=== PATIENT | male | born 1940 | race Two or more races ===

== ENCOUNTER 2020-03-19 19:43 | Inpatient (IN) | payer MEDICARE, BC ==
[~2020-03-19] VITALS: Ht 167.6 cm; Wt 76.2 kg
--- NOTE | 2020-03-19 20:30 | NUR ---
GPS MENTAL TELEPATHIST: ADMITTED 79 Y/O MALE. PT ADMITTED FROM [facility]. PT ADMITTED FROM [facility] TO GPS ON A 5150. PER HOLD PT IS HERE DUE TO INCREASINGLY CONFUSED, DISORIENTED, ANXIOUS, RESTLESS, WALKING IN THE MIDDLE OF THE NIGHT, INCREASE DELUSION THAT HIS IS AN IMPOSTER AND THAT HE IS TO HIS DAUGHTER, HE IS TALKING ABOUT HIRING A HITMAN TO GET RID OF HIS DAUGHTERS , AGGRESSIVE, PT TOOK 55 TABLETS OF 25MCG OF SYNTHROID AND TOLD HIS HE WOULD RITA HIMSELF. UPON FACE TO FACE ASSESSMENT PT IS ALERT ORIENTED X 1-2, UNCOOPERATIVE, ANXIOUS, FORGETFUL, CONFUSED, PARANOID, DISORGANIZED AT TIMES, AND EASILY AGITATED. PT YEVGENIY SI/ HI AT THIS TIME. PT STATED "I HAVE NO CLUE WHY IM HERE". PT UNABLE TO SIGN NECESSARY PAPER WORK DUE TO CONFUSION . ENVIRONMENTAL SAFETY CHECK DONE Q15. ENCOURAGE PT VERBALIZE FEELINGS AND CONCERNS TO STAFF. ORIENTED PT TO THE UNIT. NOTIFIED HOT CAR OPERATOR DR ROMERO FOR MED RECON. NOTIFIED PTS DAUGHTER OF ADMISSION (NILS). BELONGING AND CONTRABAND WERE DONE. NURSING ASSESSMENT WERE DONE. NURSING ASSESSMENT DONE. PT REFUSED SKIN ASSESSMENT AND PICTURES FOR DOCUMENTATION. PT STATED, "ITS NOT GOING TO HAPPEN." PT REFUSED PICTURE OF FACE. PT RIGHTS DISCUSSED BY LOCAL CITY DRIVER. PROVIDED PT WITH HANDBOOK AND MED GUIDE, VITALS TAKEN WNL. NO S/S OF RESP DISTRESS. BREATHING EVEN AND UNLABORED. NO S/S OF SOB. CONTINUE TO MONITOR.
[2020-03-19] MEDS ORDERED: MAGNESIUM HYDROXIDE 30 ML UDC PO PRN (21:00)
[2020-03-19] MEDS ORDERED: BLOOD SUGAR DIAGNOSTIC 1 EACH STRIP IN ONE (21:00)
[2020-03-19] MEDS ORDERED: MAG HYDROX/AL HYDROX/SIMETH 30 ML UDC PO PRN (21:00)
[2020-03-19] MEDS ORDERED: ACETAMINOPHEN 325 MG TABLET PO PRN (21:00)
[2020-03-19] MEDS ORDERED: DUTA0.5C PO (22:12)
[2020-03-19] MEDS ORDERED: CLON0.5T PO (22:12)
[2020-03-19] MEDS ORDERED: QUET25TA PO (22:12)
[2020-03-19] MEDS ORDERED: synthroid PO (22:12)
[2020-03-19] MEDS ORDERED: NORT25CA5 PO (22:12)
[2020-03-19] MEDS ORDERED: DONE5TAB7 PO (22:12)
[2020-03-19 23:22] VITALS: BP 155/89
[2020-03-20] MEDS: LEVOTHYROXINE SODIUM 25 MCG TABLET PO SCH (07:43)
[2020-03-20 08:00] VITALS: BP 114/72
[2020-03-20 08:27] LABS: ALBUMIN 3.7 g/dL (3.4-5.0); BILIRUBIN,TOTAL 0.6 mg/dL (0.2-1.0); CALCIUM, SERUM 9.4 mg/dL (8.5-10.1); CREATININE 0.9 mg/dL (0.6-1.3); TOTAL PROTEIN, SERUM 7.7 g/dL (6.4-8.2)
[2020-03-20] MEDS: DUTASTERIDE (0.5 MG) 0.5 MG CAPSULE PO SCH (08:58)
--- NOTE | 2020-03-20 09:00 | NUR ---
RN NOTE- PT WANDERING UNIT, CONFUSED, DISORGANIZED LOOKING FOR , THINKING OTHER PTS ARE HIS SPOUSE, CONSTANT REDIRECTION REQUIRED. MED COMPLIANT , PO INTAKE POOR
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
[2020-03-20 09:32] LABS: CHOLESTEROL 258 mg/dL (<200); HDL CHOLESTEROL 68 mg/dL (40-60); LDL 184 mg/dL (0-99); TRIGLYCERIDES 77 mg/dL (30-150)
--- NOTE | 2020-03-20 10:04 | NUR ---
INITIAL DISCHARGE PLAN: Per Madie [phone] she wishes for pt to return home [address], [place] [address] buy wants to see how pt responds to treatment before making a decision is pt will be needing placement. SW will help form a safe and proper discharge in collaboration with .
--- NOTE | 2020-03-20 10:05 | NUR ---
FAMILY CONTACT: SW received a call from pts daughter Bren [phone] requesting SW's email to send advance directive. SW provided daughter with email address and forwarded call to nurses station.
--- NOTE | 2020-03-20 15:25 | NUR ---
INDIVIDUAL INTERVENTION: Pt has Lewy Body Dementia and only alert and oriented to self. Pt is unable to engage in a meaningful conversation. Pt is a poor historian and believes he is a passenger in a ship and is looking for his . Pt is pacing the hallway and coming in and out of his room. Pt is anxious and restless.
[2020-03-20 16:00] VITALS: BP 128/79
--- NOTE | 2020-03-20 20:00 | NUR ---
peoplesoft fscm developer initial notes seen pt in his room awake, standing , wandering, so confused, disoriented. seen wearing his pants other way around. teach him how he do it and put pt gown as well. Noticed no skin breakdown . still refusing to take photo . Re- oriented where he at . denies any discomfort. no signs of any distress noted. Frequent re-orientation needed. will continue Q 15 minutes monitoring of safety.
[2020-03-20 20:24] VITALS: BP 97/53
[2020-03-20] MEDS: RIVASTIGMINE TARTRATE 1.5 MG CAPSULE PO SCH (21:23)
[2020-03-20] MEDS: risperiDONE 0.25 MG TABLET PO SCH (21:23)
[2020-03-20] MEDS: MIRTAZAPINE 15 MG TABLET PO SCH (21:24)
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
[2020-03-21 08:00] VITALS: BP 139/92
[2020-03-21] MEDS: risperiDONE 0.25 MG TABLET PO SCH ×2 (08:17→20:28)
[2020-03-21] MEDS: DUTASTERIDE (0.5 MG) 0.5 MG CAPSULE PO SCH (08:17)
[2020-03-21] MEDS: LEVOTHYROXINE SODIUM 25 MCG TABLET PO SCH (08:17)
[2020-03-21] MEDS: RIVASTIGMINE TARTRATE 1.5 MG CAPSULE PO SCH ×2 (08:17→21:05)
[2020-03-21 16:00] VITALS: BP 147/87
--- NOTE | 2020-03-21 16:10 | NUR ---
Family Contact: Pts daughter, Bren, called the SW from the pts wifes phone, Madie ([phone]), as she was present on the call as well. SW and the pts daughter went through the various discharge options for the pt. SW stated that the pt can return home if the family requests but stated it is recommended that the pt is placed somewhere as he has been aggressive. CORINNA stated that placement for psych patients in the [facility] can get difficult and therefore she recommended two placement agencies that can work with the hospital SWs in placing the pt in [place]. SW explained the finances and the different qualities in each type of facility such as penitentiary, assisted living and memory care. Pts daughter stated that they will discuss the options and call the SW back to start the discharge planning process.
[2020-03-21] MEDS: MIRTAZAPINE 15 MG TABLET PO SCH (21:05)
--- NOTE | 2020-03-22 06:20 | NUR ---
GPS-RN NOTE: BRUISES PATIENT NOTED TO HAVE OLD BRUISES ON RIGHT UPPER ARM AND NOTICED PATIENT WAS SCRATCHING AND NOTED WITH SMALL AMOUNT OF BLOOD COMING OUT. INITIAL TREATMENT RENDERED. DISCOURAGED PATIENT NOT TO SCRATCH THE AFFECTED AREA. PT. VERBALIZED UNDERSTANDING. NO S/SX OF INFECTION NOTED. NO ACTIVE BLEEDING NOTED. WOUND CONSULT ORDERED. WILL ENDORSE TO THE DAY SHIFT NURSE FOR CONTINUITY OF CARE.
[2020-03-22 08:00] VITALS: BP 120/64
[2020-03-22] MEDS: RIVASTIGMINE TARTRATE 1.5 MG CAPSULE PO SCH ×2 (08:20→21:52)
[2020-03-22] MEDS: LEVOTHYROXINE SODIUM 25 MCG TABLET PO SCH (08:20)
[2020-03-22] MEDS: risperiDONE 0.25 MG TABLET PO SCH ×2 (08:20→20:23)
[2020-03-22 16:00] VITALS: BP 106/50
--- NOTE | 2020-03-22 19:30 | NUR ---
GPS RN NOTE, RECEIVED PATIENT AWAKE AND IN BED, PATIENT HAS NO COMPLAINTS OF PAIN. PATIENT IS DISPLAYING NO S/S OF APPARENT DISTRESS AT THIS TIME. PATIENT BREATHING IS UNLABORED WITH EQUAL RISE AND FALL OF THE CHEST. PATIENT IS ALERT AND ORIENTED X 1-2 ON ROOM AIR WITH A SPO2 95%. PATIENT IS COMPLIANT WITH MEDICATION, CONFUSED, CALM, ANXIOUS AT TIMES, AND COOPERATIVE. PATIENT DENIES SUICIDE IDEATIONS AND HOMICIDAL IDEATIONS AT THIS TIME. PATIENT ASSISTED WITH TURNING AND REPOSITIONING Q2HR AND PRN FOR COMFORT AND CIRCULATION. PATIENT HAS NO NEEDS AT THIS TIME. PATIENT EDUCATED ON THE USE OF THE CALL GOMEZ. PATIENT BED SIDE RAILS UP X 2 FOR SAFETY, BED IS LOCKED, AND LOW. WILL CONTINUE TO MONITOR Q15MIN WITH THE HELP OF STAFF TO MAINTAIN SAFETY.
[2020-03-22 20:20] VITALS: BP 135/79
[2020-03-22] MEDS: MIRTAZAPINE 15 MG TABLET PO SCH (21:52)
[2020-03-23] MEDS: risperiDONE 0.25 MG TABLET PO SCH ×2 (07:32→20:59)
[2020-03-23] MEDS: LEVOTHYROXINE SODIUM 25 MCG TABLET PO SCH (07:32)
[2020-03-23] MEDS: RIVASTIGMINE TARTRATE 1.5 MG CAPSULE PO SCH ×2 (08:28→21:10)
--- NOTE | 2020-03-23 09:00 | NUR ---
RN NOTE- PT SLIGHTLY BETTER THIS MORNING THAN TWO DAYS PREVIOUSLY, CALMER LESS ANXIETY, STILL DISORGANIZED, CONFUSED, THINKS HES 'ON A SHIP' NEEDS ATTENDED, PO INTAKE GOOD MED COMPLIANT
--- NOTE | 2020-03-23 15:19 | NUR ---
INDIVIDUAL INTERVENTION: Pt has Lewy Body Dementia and only alert and oriented to self. Pt is unable to engage in a meaningful conversation. Pt was sitting in his room, talking to himself. When SW asked who he was talking to pt stated, "oh to the captain of this ship."
--- NOTE | 2020-03-23 15:49 | NUR ---
FAMILY CONTACT: CORINNA contacted pts Madie [phone] to discuss pts discharge plan. states that she is unable to afford placing pt at an assisted living and states that she really wishes for pt to return home. states that today pt sounded much better over the phone and believes the medication is working well. states that she would like to see how pt is doing over the weekend before making a final decision. states that she wishes for the MD to keep pt hospitalized as long as possible to ensure he continues responding well to the medication. is requesting a phone call from . SW stated she will notify MD and will follow up with her next week.
[2020-03-23 16:11] VITALS: BP 122/69
--- NOTE | 2020-03-23 19:30 | NUR ---
GPS RN NOTE, RECEIVED PATIENT AWAKE AND IN BED, PATIENT HAS NO COMPLAINTS OF PAIN. PATIENT IS DISPLAYING NO S/S OF APPARENT DISTRESS AT THIS TIME. PATIENT BREATHING IS UNLABORED WITH EQUAL RISE AND FALL OF THE CHEST. PATIENT IS ALERT AND ORIENTED X 1-2 ON ROOM AIR WITH A SPO2 97%. PATIENT IS COMPLIANT WITH MEDICATION, CONFUSED, CALM, ANXIOUS AT TIMES, AND COOPERATIVE. PATIENT DENIES SUICIDE IDEATIONS AND HOMICIDAL IDEATIONS AT THIS TIME. PATIENT ASSISTED WITH TURNING AND REPOSITIONING Q2HR AND PRN FOR COMFORT AND CIRCULATION. PATIENT HAS NO NEEDS AT THIS TIME. PATIENT EDUCATED ON THE USE OF THE CALL GOMEZ. PATIENT BED SIDE RAILS UP X 2 FOR SAFETY, BED IS LOCKED, AND LOW. WILL CONTINUE TO MONITOR Q15MIN WITH THE HELP OF STAFF TO MAINTAIN SAFETY.
[2020-03-23 20:00] VITALS: BP 139/64
[2020-03-23] MEDS: MIRTAZAPINE 15 MG TABLET PO SCH (21:10)
[2020-03-24 08:00] VITALS: BP 118/66
[2020-03-24] MEDS: risperiDONE 0.25 MG TABLET PO SCH ×2 (08:24→20:13)
[2020-03-24] MEDS: RIVASTIGMINE TARTRATE 1.5 MG CAPSULE PO SCH ×2 (08:24→21:28)
[2020-03-24] MEDS: LEVOTHYROXINE SODIUM 25 MCG TABLET PO SCH (08:24)
[2020-03-24 16:00] VITALS: BP 126/76
[2020-03-24 20:00] VITALS: BP 132/76
[2020-03-24] MEDS: MIRTAZAPINE 15 MG TABLET PO SCH (21:28)
[2020-03-25 08:00] VITALS: BP 127/69
[2020-03-25] MEDS: LEVOTHYROXINE SODIUM 25 MCG TABLET PO SCH (08:12)
[2020-03-25] MEDS: risperiDONE 0.25 MG TABLET PO SCH ×2 (08:12→20:37)
[2020-03-25] MEDS: RIVASTIGMINE TARTRATE 1.5 MG CAPSULE PO SCH ×2 (08:12→21:10)
[2020-03-25 16:00] VITALS: BP 139/77
[2020-03-25 20:28] VITALS: BP 151/80
[2020-03-25] MEDS: MIRTAZAPINE 15 MG TABLET PO SCH (21:10)
[2020-03-26] MEDS: LEVOTHYROXINE SODIUM 25 MCG TABLET PO SCH (07:24)
[2020-03-26] MEDS: risperiDONE 0.25 MG TABLET PO SCH ×2 (07:24→20:28)
[2020-03-26 08:00] VITALS: BP 130/69
[2020-03-26] MEDS: RIVASTIGMINE TARTRATE 1.5 MG CAPSULE PO SCH ×2 (08:15→20:28)
--- NOTE | 2020-03-26 09:00 | NUR ---
RN NOTE- AMBULATORY, CONFUSED ORIENTED TO PERSON ONLY NO BEHAVIORAL ISSUES PACING WANDERING , PO INTAKE GOOD MED COMPLIANT
[2020-03-26 16:00] VITALS: BP 141/68
--- NOTE | 2020-03-26 16:07 | NUR ---
Family Contact: Pts daughter, Bren, called the SW from the pts wifes phone, Madie ([phone]), and the SW discussed whether or not the pt can return to their home. They stated that the pt seems to be getting worse and cannot come home. They stated that they have a facility that has already accepted their pt and that they need to speak to the MD to understand any medication changes or when there is a projected discharge date.
[2020-03-26 20:00] VITALS: BP 148/73
[2020-03-26] MEDS: risperiDONE 1 MG TABLET PO SCH (21:30)
[2020-03-26] MEDS: MIRTAZAPINE 15 MG TABLET PO SCH (21:56)
[2020-03-27] MEDS: LEVOTHYROXINE SODIUM 25 MCG TABLET PO SCH (07:37)
[2020-03-27 08:00] VITALS: BP 134/68
[2020-03-27] MEDS: RIVASTIGMINE TARTRATE 1.5 MG CAPSULE PO SCH ×2 (08:29→20:47)
--- NOTE | 2020-03-27 09:00 | NUR ---
RN NOTE- DR INCREASED RISPERDAL LAST EVENING. PT CONFUSED DISORGANIZED CONTINUES TO THINK HES ON A SHIP. WANDERS UNIT CALM MUMBLING TO SELF AT TIMES PO INTAKE GOOD MED COMPLIANT
[2020-03-27] MEDS: risperiDONE 1 MG TABLET PO SCH ×2 (09:02→20:48)
[2020-03-27 16:00] VITALS: BP 107/57
--- NOTE | 2020-03-27 16:15 | NUR ---
SNF Referral: CORINNA faxed a referral to [facility] with attn to Soni to the fax number: [phone].
--- NOTE | 2020-03-27 16:16 | NUR ---
Facility Contact: CORINNA spoke to Charanjit ([phone]) from [facility] who stated that the pt would need a Physicians Report before being admitted. CORINNA stated that she would work on it once it is sent to her.
[2020-03-27 20:16] VITALS: BP 154/78
[2020-03-27] MEDS: MIRTAZAPINE 15 MG TABLET PO SCH (21:47)
[2020-03-28 08:00] VITALS: BP 123/68
[2020-03-28] MEDS: LEVOTHYROXINE SODIUM 25 MCG TABLET PO SCH (08:29)
[2020-03-28] MEDS: RIVASTIGMINE TARTRATE 1.5 MG CAPSULE PO SCH ×2 (08:29→21:08)
[2020-03-28] MEDS: risperiDONE 1 MG TABLET PO SCH ×2 (09:30→21:08)
--- NOTE | 2020-03-28 11:19 | NUR ---
Facility Contact: CORINNA faxed a Physicians report, progress note and insurance information to Charanjit ([phone]) from [facility] to the fax number: [phone].
--- NOTE | 2020-03-28 11:20 | NUR ---
Facility Contact: CORINNA called Charanjit ([phone]) from [facility] and informed her that the hospital is not testing pts that are asymptomatic at this time. CORINNA informed her that she can send the screening tool form that we have been using for other facilities as well as all of the pts vitals but she stated that a test would be required because it would be difficult to enforce isolation with this pt. CORINNA stated that she would discuss this with her diving supervisor.
--- NOTE | 2020-03-28 11:25 | NUR ---
Individual Intervention: SW encouraged the pt to attend group therapy regarding his discharge planning but the pt refused and stated that he did not want to talk to others. SW met with the pt at the activities room and he stated that he wanted to go back to his home and he just wanted to know when that would be. SW stated that he will be discharged by the end of the week as a tentative plan for right now. Pt stated that he was excited to be back with his family. SW expressed to him that his family is looking into having the pt go to a facility and the pt became upset and said that he wanted to return to his home and be with them. SW expressed that the family is concerned for their safety because of his illness and inquired if he could understand that. Pt stated that he understands but that it makes him sad and that he would never hurt his family on purpose. SW stated that his family knows that is true but they are taking their safety into concern and he stated that he understands.
--- NOTE | 2020-03-28 12:05 | NUR ---
Facility Contact: CORINNA called Charanjit ([phone]) from [facility] and informed her that all patients on GPS are medically cleared before being admitted so there is no COVID on this unit. CORINNA also expressed that based of the [facility] Guidelines, pt does not need to be isolated for 14 days after discharge. Charanjit stated that they will still be requiring a test for safety purposes.
--- NOTE | 2020-03-28 13:49 | NUR ---
Family Contact: CORINNA called the pts daughter, Bren ([phone]), and informed her that the SW had sent the appropriate paperwork to [facility]. CORINNA stated that the facility is asking for a COVID test and that the hospital will not be administering one for this pt because he is not showing any symptoms. CORINNA did contact her correctional supervisor lieutenant, Lu Anna LCSW, regarding this request and it was denied. Pts daughter stated that this is the facility that they want the pt to be in and therefore wanted to speak to the nursing correctional supervisor lieutenant. SW transferred the call to the nursing correctional supervisor lieutenant.
--- NOTE | 2020-03-28 14:09 | NUR ---
SNF Contact: Soni ([phone]), marine operations coordinator from [facility], contacted the SW and stated that the pt was accepted to their facility.
--- NOTE | 2020-03-28 15:35 | NUR ---
Individual Counseling: SW met with pt. in the activities room and invited him to participate in individual counseling. Pt. declined to participate and stated " I do not need counseling, I rather watch TV". SW encouraged pt. to participate in discussion with SW regarding positive coping mechanisms. Pt. refused.This SW or other SW will continue attempts to engage pt. in individual or group counseling session.
[2020-03-28 16:00] VITALS: BP 115/57
[2020-03-28 20:06] VITALS: BP 114/76
[2020-03-28] MEDS: MIRTAZAPINE 15 MG TABLET PO SCH (21:08)
[2020-03-29] MEDS: LEVOTHYROXINE SODIUM 25 MCG TABLET PO SCH (07:57)
[2020-03-29 08:00] VITALS: BP 125/78
[2020-03-29] MEDS: RIVASTIGMINE TARTRATE 1.5 MG CAPSULE PO SCH ×2 (08:21→20:40)
--- NOTE | 2020-03-29 09:19 | NUR ---
FAMILY CONTACT: CORINNA called the pts daughter, Bren ([phone]) and left a voicemail requesting a call to discuss her wishes to pay for a COVID test. CORINNA provided her with [facility]'s contact number so she can arrange payment with him.
--- NOTE | 2020-03-29 09:38 | NUR ---
FAMILY CONTACT: SW contacted pts Madie [phone] who states she is very upset at the fact that the hospital does not want to test Asymptomatic pts for COVID-19. She states that her daughter called the nursing supervisor labor gang and she was not able to provide her with any information. states that facility is ready to olive picker pt but all that is needed is for pt to be tested and have an chest x-ray done. states that if the hospital refuses to test pt she will refuse to take him home.
[2020-03-29] MEDS: risperiDONE 1 MG TABLET PO SCH ×2 (09:50→20:40)
--- NOTE | 2020-03-29 10:00 | NUR ---
FAMILY CONTACT: SW received a call from pts daughter, Bren ([phone]) stating that she was very upset that the CNO had not responded to her calls. SW informed her that she would have Tank Crewmember give her call to explain reason for not approving COVID-test.
--- NOTE | 2020-03-29 11:34 | NUR ---
FAMILY CONTACT: SW received a call from pts daughterBren ([phone]) stating that pt had received a covid-test yesterday. SW checked pts medical records and confirmed that a test was done and the results are pending. Daughter wishes for pt to be discharged as soon as possible. SW stated that the result are not instant and may take up to 24 hours for the results to come back. SW stated that as soon as the results come in she will notify her so that discharge can be coordinated.
--- NOTE | 2020-03-29 15:14 | NUR ---
Facility Contact: CORINNA called Jayne ([phone]) from [facility] to discuss the pts discharge. CORINNA stated that the pt received a COVID test but the results are currently pending. CORINNA stated that as soon as the results are in the SW will inform the facility so that the pt can be picked up. CORINNA stated that if the results are not ready on Thursday then the pt should be ready by Thursday.
--- NOTE | 2020-03-29 15:21 | NUR ---
INDIVIDUAL INTERVENTION: Pt has Lewy Body Dementia and only alert and oriented to self. Pt is unable to engage in a meaningful conversation. Pt is pacing the hallway and coming in and out of his room. Pt is less anxious and restless.
--- NOTE | 2020-03-29 15:22 | NUR ---
FAMILY CONTACT: SW received a call from pts daughter, Bren ([phone]) asking if SW had called her, SW stated that she had not called her. SW informed her that pts covid test results are still pending and SW will follow up with her tomorrow morning for test results and discharge coordination. Daughter agreed.
[2020-03-29 16:00] VITALS: BP 133/73
[2020-03-29 21:06] VITALS: BP 131/66
[2020-03-29] MEDS: MIRTAZAPINE 15 MG TABLET PO SCH (21:40)
[2020-03-30 08:00] VITALS: BP 103/69
--- NOTE | 2020-03-30 08:17 | NUR ---
FACILITY CONTACT: CORINNA called Jayne ([phone]) from [facility] to discuss the pts discharge. Per Kavita sales and service associate, Jayne was not in yet and stated she would be in at 9:00am and stated she would have Jayne call CORINNA back to arrange transportation.
--- NOTE | 2020-03-30 08:20 | NUR ---
FAMILY CONTACT: SW called pts daughter, Bren ([phone]) and left a voicemail informing her pts SARS-CoV-2 came back negative. SW stated that she contacted the facility and is waiting for a callback to arrange transportation.
[2020-03-30] MEDS: LEVOTHYROXINE SODIUM 25 MCG TABLET PO SCH (08:50)
[2020-03-30] MEDS: risperiDONE 1 MG TABLET PO SCH (08:50)
[2020-03-30] MEDS: RIVASTIGMINE TARTRATE 1.5 MG CAPSULE PO SCH (08:50)
--- NOTE | 2020-03-30 09:28 | NUR ---
FACILITY CONTACT: CORINNA called Jayne ([phone]) from [facility] to discuss the pts discharge on this present day. CORINNA faxed clinical and medication list along with SARS-CoV-2 results. Jayne stated she will return call to provide CORINNA with a nut picker time.
--- NOTE | 2020-03-30 09:39 | NUR ---
DISCHARGE NOTE: Pt will be discharged at time to be determined by facility. Pt will be picked up by facility transport and transported to [facility] Address: [address] [place] [address] . Pts daughter, Bren ([phone]) has been notified via voicemail. Pts mood is euthymic with congruent affect. Pt denied visual/auditory hallucinations and denied suicidal/homicidal ideation. Pt will be under the care of Psychiatrist: Dr. Mukesh George Address: [address] [place] [address] and Fusing Furnace Loader: Dr. Ute Wheeler Address: [address] [place] [address] . The multidisciplinary exit care form was done, printed, signed, and given to the patient. Addendum: 03/30/20 at 1039 by STEVEN WEINSTEIN CORINNA called Jayne ([phone]) from [facility] who confirmed moss picker at 12:30pm.
--- NOTE | 2020-03-30 10:43 | NUR ---
rn notes patient going to discharge back to snf.
--- NOTE | 2020-03-30 14:30 | NUR ---
ACCOUNT PLANNER NOTES PATIENT DISCHARGE AT THIS TIME GOING [facility]. PATIENT STABLE V/S STABLE, REFUSED PAIN. MED RECONCILIATION AND DISCHARGE ORDER REVIEWED AND EXPLAINED TO PATIENT. PATIENT VERBALIZED UNDERSTANDING. MEDICATION, AND PAPERWORK HANDED TO THE PATIENT. PATIENT WILL FOLLOW SNF MUSIC VIDEO PRODUCER, AND PSYCHIATRIST. BELONGING RETURNED BACK TO THE PATIENT.ESCORTED PATIENT TO THE LOBBY FOR SAFETY.PATIENT WET FINISHER BY TRANSPORTED PROVIDED FROM [facility] NAME MELBA GCm PHONE # .
== END 2020-03-30 14:30 | DRG 885 ==
LOC: GPS 20:18
PROVIDERS: ADMIT Psychiatry & Neurology Psychiatry; ATTEND Family Medicine
DX: F29 Unspecified psychosis not due to a substance or known physiological condition (principal); R45.851 Suicidal ideations; F02.81 Dementia in other diseases classified elsewhere, unspecified severity, with behavioral disturbance; F41.9 Anxiety disorder, unspecified; E03.9 Hypothyroidism, unspecified; E78.5 Hyperlipidemia, unspecified; Z73.6 Limitation of activities due to disability; F32.9 Major depressive disorder, single episode, unspecified; G31.83 Neurocognitive disorder with Lewy bodies; T50.902D Poisoning by unspecified drugs, medicaments and biological substances, intentional self-harm, subsequent encounter
CPT/HCPCS: 36415; 71045-TC; 80053-TC; 80061-TC; 82962-TC; 87081-TC; 97116-TC; 97530-TC